=== PATIENT | male | born 1980 | race Hispanic/Latino ===

== ENCOUNTER 2018-03-12 16:48 | Emergency (ER) | payer OTHER ==
[2018-03-12] MEDS ORDERED: ACETAMINOPHEN-CODEINE 300/30MG TAB ONE (17:12)
== END 2018-03-12 17:55 | disposition home or self-care (01) ==
LOC: EDH 16:48
DX: S93.691A Other sprain of right foot, initial encounter (principal); Z72.0 Tobacco use; X50.0XXA Overexertion from strenuous movement or load, initial encounter; Y93.89 Activity, other specified; Y92.488 Other paved roadways as the place of occurrence of the external cause; Y99.8 Other external cause status
CPT/HCPCS: 73630